=== PATIENT | male | born 1995 | race Two or more races ===

== ENCOUNTER 2019-09-21 07:09 | Day surgery (SDC) | payer OTHER | END 2019-09-21 20:30 | disposition home or self-care (01) | LOC: CIR.AMB 07:09 | PROVIDERS: ATTEND Orthopaedic Surgery Hand Surgery | DX: S62.391A Other fracture of second metacarpal bone, left hand, initial encounter for closed fracture (principal); S62.393A Other fracture of third metacarpal bone, left hand, initial encounter for closed fracture; Z20.828 Contact with and (suspected) exposure to other viral communicable diseases ==